=== PATIENT | male | born 1970 | race Caucasian/White ===

== ENCOUNTER 2017-08-29 00:49 | Observation (INO) | payer BC, OTHER ==
[2017-08-29] MEDS ORDERED: Sodium Chloride 0.9% 1,000 ML IV ONE (01:05)
[2017-08-29] MEDS ORDERED: Ondansetron 4 MG/2 ML SDV IVPUSH ONE (01:05)
[2017-08-29] MEDS ORDERED: Sodium Chloride 0.9% 2.5 ML Syringe FLUSH PRN (01:05)
--- NOTE | 2017-08-29 01:19 | EDM.PDOC ---
ED HPI GENERAL MEDICAL PROBLEM - General Chief Complaint: Chest Pain Stated Complaint: OVERDOSE Time Seen by Provider: 08/29/17 01:05 - History of Present Illness INITIAL COMMENTS - FREE TEXT/NARRATIVE: HISTORY AND PHYSICAL: History of present illness: The patient is a 47-year-old male who tells me he has no chronic medical problems ( at the computer had listed a blood pressure medication and a thyroid medication which he denies ever using and which was removed by nursing on this admission), and who presents via EMS after drinking a lot of alcohol and then trying to smoke a fentanyl patch. He states he doesn't have any pulmonary or cardiac history and that he does not normally do drugs and that with the alcohol he just "did something stupid". He says he does feel some chest discomfort and he feels like his heart is going fast but he did not pass out or black out and has no vomiting or diarrhea no abdominal pain and earlier had no systemic complaints. He did have some nausea per EMS at the scene. According to EMS they arrived and he was somewhat cyanotic but had a pulse and his significant other had started CPR on him but they gave Narcan and the patient proceeded to become more awake and communicative. Currently he is stating he is at his baseline only he has the alcohol on board. He does have a headache or neck pain. He has not had upper respiratory symptoms or shortness of breath. Review of systems: As per history of present illness and below otherwise all systems reviewed and negative. Past medical history: As per history of present illness and as reviewed below otherwise noncontributory. Surgical history: As per history of present illness and as reviewed below otherwise noncontributory. Social history: No reported history of drug or alcohol abuse. Family history: As per history of present illness and as reviewed below otherwise noncontributory. Physical exam: General: Well-developed overweight male who is nontoxic and speaking clearly and easily in the ED. He is not breathless on my evaluation and vital signs of the note by me HEENT: Atraumatic, normocephalic, pupils reactive, negative for conjunctival pallor or scleral icterus, mucous membranes moist, throat clear, neck supple, nontender, trachea midline. Lungs: Clear to auscultation, breath sounds equal bilaterally, chest nontender. No worker breathing or sensory muscle use no stridor or wheezing Heart: S1S2, irregular rhythm and tachycardic rate on our evaluation, no overt murmur is appreciated Abdomen: Soft, nondistended, nontender. Negative for masses or hepatosplenomegaly. Negative for costovertebral tenderness. Pelvis: Stable nontender. Genitourinary: Deferred. Rectal: Deferred. Extremities: Atraumatic, negative for cords or calf pain. Neurovascular unremarkable. No pedal edema or leg asymmetry Neuro: Awake, alert, oriented. Cranial nerves II through XII unremarkable. Motor and sensory unremarkable throughout. Exam nonfocal. Skin: No evidence of any diaphoresis or rashes and turgor is normal Diagnostics: EKG CBC CMP INR chest x-ray EtOH level troponin TSH mag UA UDS free T4 Therapeutics: IV O2 monitor IV fluids Zofran and Reglan Benadryl Protonix Lovenox Please note that the patient was still in the irregular tachycardic rhythm when I discussed with them his blood pressure and possibly slowing down his rhythm and rate. Patient says that he did not want to lay down because he felt nauseated so that is when I ordered the Reglan Benadryl and Protonix. When nursing was giving him those 3 medications he converted into a sinus rhythm with a rate of 94. I will repeat the EKG. I will continue to monitor the patient and plan on discussing this case with our hospitalist Dr. Egan [id number]: Case was discussed with Dr. Egan. I've seen the repeat EKG and it is a sinus rhythm rate in the 90s. He agrees to give one dose of Lovenox and he is aware that the patient has not given a urine sample for UA and UDS and that it will need to be sent from the floor. Patient is aware of all testing results as is significant other at bedside and he is agreeable for admission. Impression: Atrial tachycardia/new A. fib s/p recent narcotic use and post Narcan administration rule out new arrhythmia; elevated TSH rule out hypothyroidism Definitive disposition and diagnosis as appropriate pending reevaluation and review of above. chest Pain Score (Numeric/FACES): 5 - Related Data Allergies Allergy/AdvReac Type Severity Reaction Status Date / Time No Known Allergies Allergy Verified 08/29/17 00:59 Home Meds: Home Meds . [No Known Home Meds] 08/29/17 [History] Past Medical History HEENT History: Reports: Impaired Vision Other HEENT History: wears glasses Cardiovascular History: Reports: High Cholesterol, Hypertension Respiratory History: Reports: Other (See Below) Gastrointestinal History: Reports: Colon Polyp, GERD Genitourinary History: Reports: None Musculoskeletal History: Reports: Back Pain, Chronic Neurological History: Reports: None Psychiatric History: Reports: None Endocrine/Metabolic History: Reports: Hypothyroidism, Obesity/BMI 30+ Hematologic History: Reports: None Immunologic History: Reports: None Oncologic (Cancer) History: Reports: None Dermatologic History: Reports: None - Infectious Disease History Infectious Disease History: Reports: Chicken Pox - Past Surgical History HEENT Surgical History: Reports: Oral Surgery Musculoskeletal Surgical History: Reports: Other (See Below) - History Comment History Comment: etoh-none Social & Family History - Family History Family Medical History: Noncontributory - Tobacco Use Smoking Status *Q: Current Every Day Smoker Years of Tobacco use: 5 Packs/Tins Daily: 1 - Recreational Drug Use Recreational Drug Use: No Drug Use in Last 12 Months: No ED ROS GENERAL - Review of Systems Review Of Systems: ROS reveals no pertinent complaints other than HPI. ED EXAM, GENERAL - Physical Exam Exam: See Below (See dictation) Course - Vital Signs Last Recorded V/S: Last Vital Signs Temp 36.4 C 08/29/17 00:49 Pulse 94 08/29/17 02:07 Resp 17 08/29/17 02:07 BP 98/62 08/29/17 02:07 Pulse Ox 95 08/29/17 02:07 - Orders/Labs/Meds Orders: Active Orders 24 hr Category Date Time Status Cardiac Monitoring [RC] . DIRECTED Care 08/29/17 01:04 Active Communication Order [RC] STAT Care 08/29/17 01:04 Active EKG Documentation Completion [RC] STAT Care 08/29/17 01:04 Active EKG Documentation Completion [RC] STAT Care 08/29/17 02:11 Active Oxygen Therapy, ED [RC] ASDIRECTED Care 08/29/17 01:04 Active Chest 1V Frontal [CR] Stat Exams 08/29/17 01:05 Taken DRUG SCREEN, URINE [URCHEM] Stat Lab 08/29/17 01:05 Uncollected T4 FREE [CHEM] Stat Lab 08/29/17 02:09 Ordered UA W/MICROSCOPIC [URIN] Stat Lab 08/29/17 01:05 Uncollected Enoxaparin [Lovenox] Med 08/29/17 02:25 Once 100 mg SUBCUT ONETIME ONE Sodium Chloride 0.9% [Saline Flush] Med 08/29/17 01:05 Active 10 ml FLUSH ASDIRECTED PRN Sodium Chloride 0.9% [Saline Flush] Med 08/29/17 01:05 Active 2.5 ml FLUSH ASDIRECTED PRN Saline Lock Insert [OM.PC] Stat Oth 08/29/17 01:04 Ordered Medication Orders Sodium Chloride (Saline Flush) 10 ml FLUSH ASDIRECTED PRN PRN Reason: Keep Vein Open Last Admin: 08/29/17 02:06 Dose: 10 ml Admin: 08/29/17 01:20 Dose: 10 ml Sodium Chloride (Saline Flush) 2.5 ml FLUSH ASDIRECTED PRN PRN Reason: Keep Vein Open Last Admin: 08/29/17 01:23 Dose: 2.5 ml Labs: Laboratory Tests 08/29/17 08/29/17 08/29/17 Range/Units 01:15 01:15 01:15 WBC 9.93 (4.0-11.0) K/uL RBC 5.22 (4.50-5.90) M/uL Hgb 17.4 H (13.0-17.0) g/dL Hct 48.4 (38.0-50.0) % MCV 92.7 (80.0-98.0) fL MCH 33.3 H (27.0-32.0) pg MCHC 36.0 (31.0-37.0) g/dL RDW Std Deviation 43.5 (28.0-62.0) fl RDW Coeff of Jack 13 (11.0-15.0) % Plt Count 246 (150-400) K/uL MPV 10.10 (7.40-12.00) fL Neut % (Auto) 71.5 (48.0-80.0) % Lymph % (Auto) 20.5 (16.0-40.0) % [place] % (Auto) 7.2 (0.0-15.0) % Eos % (Auto) 0.6 (0.0-7.0) % Baso % (Auto) 0.2 (0.0-1.5) % Neut # (Auto) 7.1 H (1.4-5.7) K/uL Lymph # (Auto) 2.0 (0.6-2.4) K/uL [place] # (Auto) 0.7 (0.0-0.8) K/uL Eos # (Auto) 0.1 (0.0-0.7) K/uL Baso # (Auto) 0.0 (0.0-0.1) K/uL Nucleated RBC % 0.0 /100WBC Nucleated RBCs # 0 K/uL INR 1.01 (0.86-1.11) Sodium 138 (136-146) mmol/L Potassium 3.5 (3.5-5.1) mmol/L Chloride 104 (98-110) mmol/L Carbon Dioxide 21 (21-31) mmol/L BUN 13 (6.0-23.0) mg/dL Creatinine 1.5 (0.6-1.5) mg/dL Est Cr Clr Drug Dosing 69.26 mL/min Estimated GFR (MDRD) 49.7 ml/min Glucose 221 H (60-110) mg/dL Calcium 8.5 L (8.8-10.8) mg/dL Magnesium 2.1 (1.5-2.3) mEq/L Total Bilirubin 0.5 (0.1-1.5) mg/dL AST 32 (5-40) IU/L ALT 43 (8-54) IU/L Alkaline Phosphatase 57 (40-150) Troponin I < 0.10 (0.0-0.29) NG/ML Total Protein 7.1 (6.0-8.0) g/dL Albumin 4.3 (3.5-5.0) g/dL Globulin 2.8 (2.0-3.5) g/dL Albumin/Globulin Ratio 1.5 TSH 3rd Generation 6.02 H (0.47-5.0) uIU/mL Ethyl Alcohol 121.6 mg/dL Meds: Medications Generic Name Dose Route Start Last Admin Trade Name Freq PRN Reason Stop Dose Admin Sodium Chloride 10 ml 08/29/17 01:05 08/29/17 02:06 Saline Flush FLUSH 10 ml ASDIRECTED PRN Administration Keep Vein Open Sodium Chloride 2.5 ml 08/29/17 01:05 08/29/17 01:23 Saline Flush FLUSH 2.5 ml ASDIRECTED PRN Administration Keep Vein Open Discontinued Medications Generic Name Dose Route Start Last Admin Trade Name Freq PRN Reason Stop Dose Admin Diphenhydramine HCl 50 mg 08/29/17 01:52 08/29/17 02:00 Benadryl IVPUSH 08/29/17 01:53 50 mg ONETIME ONE Administration Sodium Chloride 1,000 mls @ 999 mls/hr 08/29/17 01:05 08/29/17 01:23 Normal Saline IV 08/29/17 02:05 999 mls/hr STAT ONE Administration Metoclopramide HCl 10 mg 08/29/17 01:52 08/29/17 02:00 Reglan IV 08/29/17 01:53 10 mg ONETIME ONE Administration Ondansetron HCl 4 mg 08/29/17 01:05 08/29/17 01:23 Zofran IVPUSH 08/29/17 01:06 4 mg ONETIME ONE Administration Pantoprazole Sodium 40 mg 08/29/17 01:54 08/29/17 02:01 Protonix Iv IVPUSH 08/29/17 01:55 40 mg .BOLUS ONE Administration Pantoprazole Sodium Confirm 08/29/17 01:57 08/29/17 02:07 Protonix Iv Administered 08/29/17 01:58 Not Given Dose 40 mg .ROUTE .STK-MED ONE Departure - Departure Time of Disposition: 02:27 Disposition: Refer to Observation Condition: Good Clinical Impression: Atrial arrhythmia, Narcotic drug use, Alcohol ingestion - Discharge Information Referrals: PCP,None [Primary Care Provider] - Forms: ED Department Discharge - My Orders Last 24 Hours: My Active Orders 08/29/17 01:04 Cardiac Monitoring [RC] . DIRECTED Communication Order [RC] STAT EKG Documentation Completion [RC] STAT Oxygen Therapy, ED [RC] ASDIRECTED Saline Lock Insert [OM.PC] Stat 08/29/17 01:05 Chest 1V Frontal [CR] Stat DRUG SCREEN, URINE [URCHEM] Stat UA W/MICROSCOPIC [URIN] Stat Sodium Chloride 0.9% [Saline Flush] 10 ml FLUSH ASDIRECTED PRN Sodium Chloride 0.9% [Saline Flush] 2.5 ml FLUSH ASDIRECTED PRN 08/29/17 02:09 T4 FREE [CHEM] Stat 08/29/17 02:11 EKG Documentation Completion [RC] STAT 08/29/17 02:25 Enoxaparin [Lovenox] 100 mg SUBCUT ONETIME ONE - Assessment/Plan Last 24 Hours: My Active Orders 08/29/17 01:04 Cardiac Monitoring [RC] . DIRECTED Communication Order [RC] STAT EKG Documentation Completion [RC] STAT Oxygen Therapy, ED [RC] ASDIRECTED Saline Lock Insert [OM.PC] Stat 08/29/17 01:05 Chest 1V Frontal [CR] Stat DRUG SCREEN, URINE [URCHEM] Stat UA W/MICROSCOPIC [URIN] Stat Sodium Chloride 0.9% [Saline Flush] 10 ml FLUSH ASDIRECTED PRN Sodium Chloride 0.9% [Saline Flush] 2.5 ml FLUSH ASDIRECTED PRN 08/29/17 02:09 T4 FREE [CHEM] Stat 08/29/17 02:11 EKG Documentation Completion [RC] STAT 08/29/17 02:25 Enoxaparin [Lovenox] 100 mg SUBCUT ONETIME ONE
[2017-08-29] MEDS: Sodium Chloride 0.9% 10 ML Syringe FLUSH PRN ×2 (01:20→02:06)
[2017-08-29 01:44] LABS: CHLORIDE,CL 104 mmol/L (98-110); SODIUM,NA 138 mmol/L (136-146)
[2017-08-29] MEDS ORDERED: diphenhydrAMINE 50 MG/ML SDV IVPUSH ONE (01:52)
[2017-08-29] MEDS ORDERED: Metoclopramide 10 MG/2 ML SDV IV ONE (01:52)
[2017-08-29] MEDS ORDERED: Pantoprazole 40 MG Vial IVPUSH ONE (01:54)
[2017-08-29] MEDS ORDERED: Pantoprazole 40 MG Vial ONE (01:57)
[2017-08-29] MEDS ORDERED: Enoxaparin 100 MG/1 ML Syringe SUBCUT ONE (02:25)
[2017-08-29] MEDS ORDERED: Sodium Chloride 0.9% 1,000 ML IV SCH (02:30)
[2017-08-29 07:46] LABS: CHLORIDE,CL 107 mmol/L (98-110); SODIUM,NA 140 mmol/L (136-146)
--- NOTE | 2017-08-29 08:16 | PCM.HP ---
H&P History of Present Illness - General Date of Service: 08/29/17 Admit Problem/Dx: Admission Diagnosis/Problem Admission Diagnosis/Problem Atrial arrhythmia Source of Information: Patient History Limitations: Reports: No Limitations - History of Present Illness Initial Comments - Free Text/Narative: This 47 year old male with pmh of alcohol abuse presented to the ED last night after drinking heavily and smoking a Fentanyl patch. He reports he was drinking his normal and wanted to try smoking Fentanyl. He was found by his spouse, who started resuscitation and called EMS. When EMS arrived he received 1 dose of Narcan and awoke. He was brought to the ED for evaluation. He was noted to be nauseated and EKG revealed atrial fibrillation. He spontaneously converted to SR rate in the 80-90s. Repeat EKG SR in the 90s. He denies pmh of HTN, CAD, or afib. No DM or neurologic disorders. He reports he was sober from alcohol for 10 years and recently started drinking again. He drinks 1/5th of hard alcohol daily. He denies waking up needing to drink, but at times feels shaky. He denies any other recreational drug use and chews 1 tin of tobacco daily. Does have a history of smoking. In the ED. Labwork WNL, ETOH 121 TSH 6.02. Troponin negative. BP initially low, 80/50s, but was given fluids and this elevated to 100/ 60s. He was treated with 1 full dose Lovenox. and admitted for observation with telemetry. chest Pain Score (Numeric/FACES): 3 - Related Data Allergies/Adverse Reactions: Allergies Allergy/AdvReac Type Severity Reaction Status Date / Time No Known Allergies Allergy Verified 08/29/17 00:59 Home Medications: Home Meds Aspirin [Adult Low Dose Aspirin EC] 81 mg PO DAILY #30 tablet. 08/29/17 [Rx] Past Medical History - Past Health History Medical/Surgical History: Denies Medical/Surgical History HEENT History: Reports: Impaired Vision Other HEENT History: wears glasses Cardiovascular History: Reports: None. Denies: Afib, Arrhythmia, Blood Clots/ VTE/DVT, CAD, High Cholesterol, Hypertension, VA Respiratory History: Reports: None. Denies: Asthma, COPD, PE Gastrointestinal History: Reports: Colon Polyp, GERD Genitourinary History: Reports: None. Denies: Acute Renal Failure, Chronic Renal Insuffiency Musculoskeletal History: Reports: Back Pain, Chronic Neurological History: Reports: None. Denies: CVA, Seizure, TIA Psychiatric History: Reports: Addiction Endocrine/Metabolic History: Reports: Hypothyroidism, Obesity/BMI 30+ Hematologic History: Reports: None Immunologic History: Reports: None Oncologic (Cancer) History: Reports: None Dermatologic History: Reports: None - Infectious Disease History Infectious Disease History: Reports: Chicken Pox - Past Surgical History Head Surgeries/Procedures: Reports: None HEENT Surgical History: Reports: Oral Surgery Musculoskeletal Surgical History: Reports: Other (See Below) - History Comment History Comment: etoh-none Social & Family History - Family History Family Medical History: Noncontributory - Tobacco Use Smoking Status *Q: Former Smoker Years of Tobacco use: 30 Packs/Tins Daily: 1 Used Tobacco, but Quit: Yes Month Tobacco Last Used: 2010 Tobacco Use Comment: vapes Second Hand Smoke Exposure: No - Caffeine Use Caffeine Use: Reports: Coffee, Soda - Alcohol Use Days Per Week of Alcohol Use: 4 (drinks a 1/5 of hard alcohol daily) Number of Drinks Per Day: 7 Total Drinks Per Week: 28 Date of Last Drink: 08/29/17 Alcohol Use Frequency: Daily - Recreational Drug Use Recreational Drug Use: No Drug Use in Last 12 Months: No - Living Situation & Occupation Living situation: Reports: Occupation: Employed H&P Review of Systems - Review of Systems: Review Of Systems: See Below General: Denies: Fever, Chills, Malaise HEENT: Reports: No Symptoms. Denies: Headaches, Sinus Congestion, Sore Throat, Vertigo Pulmonary: Reports: No Symptoms. Denies: Shortness of Breath, Wheezing, Cough, Sputum Cardiovascular: Reports: Chest Pain (mid sternal, to palpation, likely from CPR) Gastrointestinal: Reports: No Symptoms. Denies: Abdominal Pain, Black Stool, Bloody Stool, Decreased Appetite, Nausea, Vomiting Genitourinary: Reports: No Symptoms. Denies: Dysuria, Frequency, Burning Musculoskeletal: Reports: No Symptoms Neurological: Reports: No Symptoms. Denies: Confusion Hematologic/Lymphatic: Reports: No Symptoms. Denies: Anemia Immunologic: Reports: No Symptoms Exam - Exam Exam: See Below - Vital Signs Vital Signs: Last Vital Signs Temp 98 F 08/29/17 03:05 Pulse 81 12/05/17 03:05 Resp 17 08/29/17 03:05 BP 111/52 L 08/29/17 03:05 Pulse Ox 97 08/29/17 03:05 Weight: 102.058 kg - Exam General: Alert, Oriented, Cooperative, Mild Distress HEENT: Conjunctiva Clear, Hearing Intact, Mucosa Moist & [place], Nares Patent, Posterior Pharynx Clear Neck: Supple Lungs: Clear to Auscultation, Normal Respiratory Effort Cardiovascular: Regular Rate, Regular Rhythm, Other (tenderness to mid chest up slight palpation) GI/Abdominal Exam: Normal Bowel Sounds, Soft, Non-Tender, No Organomegaly, No Distention, No Abnormal Bruit, No Mass, Pelvis Stable Extremities: Normal Inspection, Normal Range of Motion, Non-Tender, No Pedal Edema, Normal Capillary Refill Neuro Extensive - Mental Status: Alert, Oriented x3, Normal Mood/Affect Neuro Extensive - Motor, Sensory, Reflexes: Tremor (scant tremor noted with abrupt movements.) Psychiatric: Alert, Normal Affect, Normal Mood - Patient Data Lab Results Last 24 hrs: Laboratory Results - last 24 hr 08/29/17 08/29/17 Range/Units 07:22 07:22 WBC 7.69 (4.0-11.0) K/uL RBC 4.83 (4.50-5.90) M/uL Hgb 15.9 (13.0-17.0) g/dL Hct 45.0 (38.0-50.0) % MCV 93.2 (80.0-98.0) fL MCH 32.9 H (27.0-32.0) pg MCHC 35.3 (31.0-37.0) g/dL RDW Std Deviation 44.1 (28.0-62.0) fl RDW Coeff of Jack 13 (11.0-15.0) % Plt Count 211 (150-400) K/uL MPV 10.00 (7.40-12.00) fL Neut % (Auto) 76.0 (48.0-80.0) % Lymph % (Auto) 16.9 (16.0-40.0) % [place] % (Auto) 6.9 (0.0-15.0) % Eos % (Auto) 0.1 (0.0-7.0) % Baso % (Auto) 0.1 (0.0-1.5) % Neut # (Auto) 5.8 H (1.4-5.7) K/uL Lymph # (Auto) 1.3 (0.6-2.4) K/uL [place] # (Auto) 0.5 (0.0-0.8) K/uL Eos # (Auto) 0.0 (0.0-0.7) K/uL Baso # (Auto) 0.0 (0.0-0.1) K/uL Nucleated RBC % 0.0 /100WBC Nucleated RBCs # 0 K/uL Sodium 140 (136-146) mmol/L Potassium 4.5 (3.5-5.1) mmol/L Chloride 107 (98-110) mmol/L Carbon Dioxide 23 (21-31) mmol/L BUN 13 (6.0-23.0) mg/dL Creatinine 1.1 (0.6-1.5) mg/dL Est Cr Clr Drug Dosing 94.45 mL/min Estimated GFR (MDRD) > 60.0 ml/min Glucose 104 (60-110) mg/dL Calcium 8.0 L (8.8-10.8) mg/dL Troponin I < 0.10 (0.0-0.29) NG/ML Result Diagrams: 08/29/17 07:22 08/29/17 07:22 *Q Meaningful Use (ADM) - VTE *Q VTE Criteria *Q: - Stroke *Q Stroke Criteria *Q: - AMI *Q AMI Criteria *Q: - Problem List (1) Opioid overdose SNOMED Code(s): 924710327 ICD Code: T40.2X1A - POISONING BY OTH OPIOIDS, ACCIDENTAL (UNINTENTIONAL), INIT Status: Acute Current Visit: Yes Qualifiers: Encounter type: initial encounter Injury intent: accidental or unintentional Qualified Code(s): T40.2X1A - Poisoning by other opioids, accidental (unintentional), initial encounter (2) Alcohol ingestion SNOMED Code(s): 911486524 ICD Code: Z78.9 - OTHER SPECIFIED HEALTH STATUS Status: Acute Current Visit: Yes (3) Atrial arrhythmia SNOMED Code(s): 66263504 ICD Code: I49.8 - OTHER SPECIFIED CARDIAC ARRHYTHMIAS Status: Acute Current Visit: Yes (4) Narcotic drug use SNOMED Code(s): 35257965 ICD Code: F11.90 - OPIOID USE, UNSPECIFIED, UNCOMPLICATED Status: Acute Current Visit: Yes Problem List Initiated/Reviewed/Updated: Yes Orders Last 24hrs: Active Orders 24 hr Category Date Time Status Overnight Pulse Oximetry [RC] Click to Edit Care 08/29/17 03:42 Active Telemetry Monitoring [Cardiac Monitoring] [RC] . Care 08/29/17 02:55 Active DIRECTED Regular Diet [DIET] Diet 08/29/17 Breakfast Active TROPONIN I [CHEM] Q6H Lab 08/29/17 13:15 Ordered Sodium Chloride 0.9% [Normal Saline] 1,000 ml Med 08/29/17 02:30 Active IV ASDIRECTED Pulse Oximetry Continuous Monitoring [OM.PC] Routine Oth 08/29/17 03:42 Ordered Medication Orders Sodium Chloride (Normal Saline) 1,000 mls @ 125 mls/hr IV ASDIRECTED VANNESA Last Admin: 08/29/17 02:34 Dose: 125 mls/hr Sodium Chloride (Saline Flush) 10 ml FLUSH ASDIRECTED PRN PRN Reason: Keep Vein Open Last Admin: 08/29/17 02:06 Dose: 10 ml Admin: 08/29/17 01:20 Dose: 10 ml Sodium Chloride (Saline Flush) 2.5 ml FLUSH ASDIRECTED PRN PRN Reason: Keep Vein Open Last Admin: 08/29/17 01:23 Dose: 2.5 ml Assessment/Plan Comment:: This 47 year old male admitted after accidental opioid overdose and new onset a fib. 1. Opioid overdose: Given narcan on the scene and regained consciousness. Did receive limited CPR from spouse prior to EMS arrival. Alert and oriented now. VS stable. Spoke very candid with patient and at bedside, regarding high risk recreational use of opioids. He reports never doing this and reports this was a huge wake up call. "I did something very stupid." Reiterated, that if was not present as quickly as she was, he would likely have . 2. Afib: New onset and converted untreated in ED. Telemetry all night has matthew SR 80-90s. Rare PACs. Recommend ECHO as outpatient for further evaluation. troponins negative x2 so far, last troponin at 1300. Could be related to alcohol ingestion. 3. Alcohol abuse: Reported he wants to stop and has been. Reports many sponsors calling him for support and to stop already. Will provide AA meetings , human service numbers and [facility]. Dispo: Requesting discharge today, possible DC after last troponin at 1300. Discharge plan: Last troponin negative. He would like to be discharged home today. He was offered inpatient detox over next day or two to be monitored and he declined. He reports having some pain with deep breathing and limits deep breathing. He was encouraged to use IS and take this home and encourage use at home. He will be discharged home. ECHO is pending. PCP, Ciro Loco, SOFTWARE DEVELOPMENT SPECIALIST aware of admission and treatment plan upon discharge. He is to return to ED or clinic if concerns should arise.
--- NOTE | 2017-08-29 11:17 | CR ---
EXAM DATE: 08/29/17 PATIENT'S AGE: 47 Patient: ROJELIO MITCHELL Facility: [place], [place] Site . Site : [id number] Study: XRay Chest [id number] 1:23:35 AM Ordering Physician: Doctor Perea Final Report: INDICATION: Chest pain TECHNIQUE: Chest radiograph 1 view COMPARISON: None FINDINGS: Mediastinum: The cardiac silhouette is normal in appearance and size. Mediastinum is within normal limits. Lungs: Both lungs are unremarkable in appearance. No sign of pleural effusion. No pneumothorax is seen. Bones: No significant findings. IMPRESSION: 1. No acute cardiopulmonary disease seen. Dictated by: Trent Ireland MD @ 08/29/2017 01:26:16 (Electronic Signature) Report Signed by Proxy. [facility]ITAL[facility]addy
[2017-08-29 12:57] VITALS: BP 126/84
--- NOTE | 2017-09-04 21:16 | ECHO ---
The echocardiogram report can be seen in this patient's EMR (electronic medical record) in the Reports section. The report has also been scanned into PACS and can be seen there. KATHLEEN
== END 2017-08-29 15:50 | disposition home or self-care (01) ==
LOC: MW.ED 00:49 → MW.MS 02:28
PROVIDERS: ADMIT Family Medicine; ATTEND Family Medicine
DX: T40.2X1A Poisoning by other opioids, accidental (unintentional), initial encounter (principal); I49.8 Other specified cardiac arrhythmias; K21.9 Gastro-esophageal reflux disease without esophagitis; I48.91 Unspecified atrial fibrillation; G89.29 Other chronic pain; M54.9 Dorsalgia, unspecified; E03.9 Hypothyroidism, unspecified; F17.290 Nicotine dependence, other tobacco product, uncomplicated; F10.10 Alcohol abuse, uncomplicated; E66.9 Obesity, unspecified; Z68.28 Body mass index [BMI] 28.0-28.9, adult; Z86.010 Personal history of colon polyps; Z98.890 Other specified postprocedural states
CPT/HCPCS: 36415; 71010; 80048; 80053; 80305; 81001; 83735; 84439; 84443; 84484; 85025; 85610; 93005; 93306; 96361; 96372; 96374; 96375; 99285; C9113; G0480; J1200; J1650; J2405; J2765; J7040; G0378

== ENCOUNTER 2019-07-23 06:35 | Day surgery (SDC) | payer BC ==
[~2019-07-23 06:35] MED LIST: Lactated Ringers 1,000 ML IV SCH; Sodium Chloride 0.9% 10 ML SDV IV PRN; Sodium Chloride 0.9% 10 ML Syringe FLUSH PRN; Sodium Chloride 0.9% 2.5 ML Syringe FLUSH PRN; ceFAZolin 2 GM in Premix Bag 1 BAG IV ONE
[2019-07-23] MEDS ORDERED: fentaNYL 100 MCG/2 ML SDV ONE ×2 (07:09→09:21)
[2019-07-23] MEDS ORDERED: Midazolam 1 MG/ML 2 ML SDV ONE (07:09)
[2019-07-23] MEDS ORDERED: Propofol 200 MG/20 ML SDV ONE (07:09)
--- NOTE | 2019-07-23 07:13 | PCM.PREANE ---
Preanesthetic Assessment - Anesthesia/Transfusion/Family Hx Anesthesia History: Prior Anesthesia Without Reaction Family History of Anesthesia Reaction: No Transfusion History: No Prior Transfusion(s) Intubation History: Unknown - Review of Systems General: No Symptoms Pulmonary: No Symptoms Cardiovascular: No Symptoms Gastrointestinal: No Symptoms Neurological: No Symptoms Other: Reports: None - Physical Assessment Height: 6 ft 2 in Weight: 116.12 kg ASA Class: 5E Emergency Airway Class: Mallampati = 2 Dentition: Reports: Normal Dentition, Bridge (fixed upper front) Thyro-Mental Finger Breadths: 3 Mouth Opening Finger Breadths: 3 ROM/Head Extension: Full Lungs: Clear to Auscultation, Normal Respiratory Effort Cardiovascular: Regular Rate, Regular Rhythm - Allergies Allergies/Adverse Reactions: Allergies Allergy/AdvReac Type Severity Reaction Status Date / Time No Known Allergies Allergy Verified 07/18/19 15:40 - Blood Blood Available: No - Anesthesia Plan Pre-Op Medication Ordered: None - Acknowledgements Anesthesia Type Planned: General Anesthesia Pt an Appropriate Candidate for the Planned Anesthesia: Yes Alternatives and Risks of Anesthesia Discussed w Pt/Guardian: Yes Pt/Guardian Understands and Agrees with Anesthesia Plan: Yes PreAnesthesia Questionnaire - Past Health History Medical/Surgical History: Denies Medical/Surgical History HEENT History: Reports: Impaired Vision Other HEENT History: wears glasses Cardiovascular History: Reports: Hypertension, Other (See Below) Other Cardiovascular History: states he has a "hole" in his heart- has not caused any problems Respiratory History: Reports: Sleep Apnea Other Respiratory History: uses CPAP Gastrointestinal History: Reports: Colon Polyp, GERD (mild) Genitourinary History: Reports: None Musculoskeletal History: Reports: Arthritis (bilateral knees), Back Pain, Chronic, Fracture Other Musculoskeletal History: hx of fx clavicle as a child Neurological History: Reports: None Psychiatric History: Endocrine/Metabolic History: Reports: Obesity/BMI 30+ Hematologic History: Reports: None Immunologic History: Reports: None Oncologic (Cancer) History: Reports: None Dermatologic History: Reports: None - Infectious Disease History Infectious Disease History: Reports: Chicken Pox - Past Surgical History Head Surgeries/Procedures: Reports: None HEENT Surgical History: Reports: Oral Surgery Other HEENT Surgeries/Procedures: wisdom teeth Cardiovascular Surgical History: Reports: None Respiratory Surgical History: Reports: None GI Surgical History: Reports: Colonoscopy Male Surgical History: Reports: None Endocrine Surgical History: Reports: None Neurological Surgical History: Reports: None Musculoskeletal Surgical History: Reports: Other (See Below) Other Musculoskeletal Surgeries/Procedures:: Metal removed from right knee Oncologic Surgical History: Reports: None - History Comment History Comment: etoh-none - SUBSTANCE USE Smoking Status *Q: Former Smoker (quit 3-4 years ago) Tobacco Use Within Last Twelve Months: Smokeless Tobacco Recreational Drug Use History: No - HOME MEDS Home Medications: Home Meds Omeprazole 20 mg PO DAILY 07/18/19 [History] - CURRENT (IN HOUSE) MEDS Current Meds: Current Medications Lactated Ringer's (Ringers, Lactated) 1,000 mls @ 125 mls/hr IV ASDIRECTED VANNESA Sodium Chloride (Saline Flush) 10 ml FLUSH ASDIRECTED PRN PRN Reason: Keep Vein Open Sodium Chloride (Saline Flush) 2.5 ml FLUSH ASDIRECTED PRN PRN Reason: Keep Vein Open Sodium Chloride (Normal Saline) 10 ml IV ASDIRECTED PRN PRN Reason: IV Use Discontinued Medications Cefazolin Sodium/Dextrose 2 gm (/ Premix) 50 mls @ 100 mls/hr IV ONETIME ONE Stop: 07/22/19 09:11
[2019-07-23] MEDS ORDERED: Neostigmine Methylsulfate 1 MG/ML 5 ML Syringe ONE (07:14)
[2019-07-23] MEDS ORDERED: Glycopyrrolate 0.2 MG/ML SDV ONE (07:14)
[2019-07-23] MEDS ORDERED: Ketorolac 30 MG/ML SDV ONE (07:14)
[2019-07-23] MEDS ORDERED: Rocuronium 100 MG/10 ML Syringe ONE (07:14)
[2019-07-23] MEDS ORDERED: Ondansetron 4 MG/2 ML SDV ONE (07:14)
[2019-07-23] MEDS ORDERED: Lidocaine 2% 5 ML SDV ONE (07:14)
[2019-07-23] MEDS ORDERED: Bupivacaine 0.5% 30 ML SDV ONE (07:20)
[2019-07-23] MEDS ORDERED: Sodium Chloride 0.9% 20 ML ONE (07:33)
[2019-07-23] MEDS ORDERED: ceFAZolin 1 GM Vial ONE (07:33)
[2019-07-23] MEDS ORDERED: Octyl 2-Cyanoacrylate 1 Tube ONE (08:35)
--- NOTE | 2019-07-23 09:04 | PCM.OPNOTE ---
- General Post-Op/Procedure Note Date of Surgery/Procedure: 07/23/19 Operative Procedure(s): Umbilical hernia repair Findings: 1.2 cm supraumbilical hernia containing fat Pre Op Diagnosis: Umbilical hernia Post-Op Diagnosis: same Anesthesia Technique: General ET Tube Primary Surgeon: Ara Marcial Fluid Replacement, Intraop: 800 EBL in mLs: 5 Condition: Good
--- NOTE | 2019-07-23 09:33 | PCM.POSTAN ---
POST ANESTHESIA ASSESSMENT - MENTAL STATUS Mental Status: Alert, Oriented - VITAL SIGNS Vital Signs: Last Vital Signs Temp 36.0 C 07/23/19 09:21 Pulse 80 07/23/19 09:21 Resp 18 07/23/19 09:21 BP 139/87 07/23/19 09:21 Pulse Ox 95 07/23/19 09:21 - RESPIRATORY Respiratory Status: Respiratory Rate WNL, Airway Patent, O2 Saturation Stable - CARDIOVASCULAR CV Status: Pulse Rate WNL, Blood Pressure Stable - GASTROINTESTINAL GI Status: No Symptoms - PAIN Pain Score: 4 - POST OP HYDRATION Hydration Status: Adequate & Stable - OBSERVATIONS Free Text/Narrative:: no anesthesia problems
[2019-07-23 10:10] VITALS: BP 119/85; PULSE 75
--- NOTE | 2019-07-23 10:18 | PCM48HPAN ---
Post Anesthesia Note - EVALUATION WITHIN 48HRS OF ANESTHETIC Vital Signs in Normal Range: Yes Patient Participated in Evaluation: Yes Respiratory Function Stable: Yes Airway Patent: Yes Cardiovascular Function Stable: Yes Hydration Status Stable: Yes Pain Control Satisfactory: Yes Nausea and Vomiting Control Satisfactory: Yes Mental Status Recovered: Yes Vital Signs: Last Vital Signs Temp 36.0 C 07/23/19 09:21 Pulse 75 07/23/19 09:51 Resp 18 07/23/19 09:51 BP 119/85 07/23/19 09:51 Pulse Ox 97 07/23/19 09:51 - COMMENTS/OBSERVATIONS Free Text/Narrative:: no anesthesia problems
--- NOTE | 2019-07-23 13:01 | OR ---
SURGEON: ARA MARCIAL MD DATE OF PROCEDURE: 07/23/2019 PREOPERATIVE DIAGNOSIS: Umbilical hernia. POSTOPERATIVE DIAGNOSIS: Umbilical hernia. PROCEDURE PERFORMED: Umbilical hernia repair. PRIMARY SURGEON: Ara Marcial MD. ANESTHESIA: General endotracheal anesthesia. FLUIDS: 800 mL of crystalloid. ESTIMATED BLOOD LOSS: 5 mL. FINDINGS: 1.2 cm supraumbilical fascial defect. Umbilical hernia sac containing fat. COMPLICATIONS: None. INDICATIONS: The patient is a 49-year-old male who has a symptomatic umbilical hernia. I explained the need for repair. I described the procedure; expected perioperative course; and risks including bleeding, infection, or damage to surrounding structures. The patient verbalized understanding and wishes to proceed. PROCEDURE IN DETAIL: The patient was brought into the OR and placed on the OR table in supine position. A time-out was completed verifying the patient's name, age, date of , allergies, and procedure to be performed. General endotracheal anesthesia was induced. The abdomen was prepped and draped in usual standard fashion. I anesthetized the supraumbilical area with 0.5% Marcaine plain. A 15 blade was used to make a supraumbilical fold incision. Cautery was used to dissect down to level of the subcutaneous fat. I immediately encountered a small hernia sac. I dissected this free from the surrounding tissues using Metzenbaum scissors and carefully directed cautery. I then entered the hernia sac. It contained fat. I continued to clear away the hernia sac from the surrounding tissues down to the level of the fascia. I then cleared away the attachments of the fat in the hernia sac and to the underlying fascia to allow for adequate closure. Once my fascia was cleared away, I then measured the defect. It was 1.2 cm in size. Given its small size, the decision was made to close it primarily with nonabsorbable sutures. Interrupted 0 Ethibond sutures were placed in horizontal fashion along the fascial defect and used to close this. Hemostasis was achieved in the field using electrocautery. I then closed the defect with interrupted 3-0 Vicryl sutures in the subcutaneous fat layer and the skin was closed with running 4-0 Monocryl stitch. Dermabond and a sterile dressing were applied. The patient was taken to the PACU in stable condition. All counts were complete and correct at the end of the case. JEAN / LAILA /[id number]
== END 2019-07-23 10:19 | disposition home or self-care (01) ==
LOC: MW.SDS 06:35
PROVIDERS: ATTEND Surgery
DX: K42.9 Umbilical hernia without obstruction or gangrene (principal); M17.0 Bilateral primary osteoarthritis of knee; K21.9 Gastro-esophageal reflux disease without esophagitis; I10 Essential (primary) hypertension; E66.9 Obesity, unspecified; Z79.899 Other long term (current) drug therapy; Z87.891 Personal history of nicotine dependence; Z68.32 Body mass index [BMI] 32.0-32.9, adult
CPT/HCPCS: 00750; A9270-GY; J0690; J1885; J2001; J2250; J2405; J2704; J3010; J3490; J7120